=== PATIENT | male | born 1990 | race Caucasian/White ===

== ENCOUNTER 2019-10-31 20:48 | Emergency (ER) | payer MEDICAID ==
[~2019-10-31] VITALS: Ht 177.8 cm; Wt 90.9 kg
[2019-10-31 21:05] VITALS: BP 128/64
[2019-10-31] MEDS ORDERED: tetanus & diphtheria toxoid (Td) vaccine 0.5ml IMVAC ONE (21:30)
[2019-10-31] MEDS ORDERED: TETanus/Pertussis (Acell)/Diphther VAC/PF (Tdap-Adult) 0.5ml syringe IMVAC ONE (21:35)
[2019-10-31] MEDS ORDERED: HYDROcodone/acetaminophen 5mg/325mg tablet PO ONE (21:55)
[2019-10-31] MEDS ORDERED: LIDOcaine 1% W/epiNEPHrine 1:200,000 10ml vial IJ ONE (21:55)
[2019-10-31] MEDS ORDERED: IBUP-1984 PO (23:21)
[2019-10-31] MEDS ORDERED: CEPH-572 PO (23:21)
[2019-10-31] MEDS ORDERED: cephalexin 250mg capsule PO ONE (23:25)
--- NOTE | 2019-10-31 23:37 | NUR ---
Pt moved from fast track to main er. Laceration irrigated with another 400 cc's normal saline with zeroette. FATOU Gupta at [facility] now to suture. She reprots he is to f/t with dr. Ferguson this week and that they are expecting him to call. Pt reports his pain is currently managed, but that he is concerned about pain tomorrow. PA reports pt to use OTC for pain management.
== END 2019-11-01 00:25 | disposition home or self-care (01) ==
LOC: ER 20:49
DX: S62.631A Displaced fracture of distal phalanx of left index finger, initial encounter for closed fracture (principal); S61.211A Laceration without foreign body of left index finger without damage to nail, initial encounter; Z72.89 Other problems related to lifestyle; Z79.899 Other long term (current) drug therapy; W22.8XXA Striking against or struck by other objects, initial encounter; Y93.89 Activity, other specified; Y92.89 Other specified places as the place of occurrence of the external cause; Y99.8 Other external cause status
CPT/HCPCS: 12002; 73140; 90471; 90715; 99283

== ENCOUNTER 2019-11-02 12:36 | Emergency (ER) | payer MEDICAID ==
[~2019-11-02] VITALS: Ht 175.3 cm; Wt 90.0 kg
[~2019-11-02 12:36] MED LIST: CEPH-572 PO; IBUP-1984 PO
[2019-11-02 12:40] VITALS: BP 124/60
--- NOTE | 2019-11-02 13:21 | NUR ---
pt is 29 yo male would like follow for lac to left 2nd digit, was seen on Thursday, cut finger with log splitter, dressing is dry and intact, removed by vascular technician, sutures are intact, healing well, no redness, decreased ROM to finger, trying to follow up with Dr Welch
== END 2019-11-02 13:52 | disposition home or self-care (01) ==
LOC: ER 12:37
DX: S61.211D Laceration without foreign body of left index finger without damage to nail, subsequent encounter (principal); Z72.89 Other problems related to lifestyle; Z79.899 Other long term (current) drug therapy; W22.8XXD Striking against or struck by other objects, subsequent encounter
CPT/HCPCS: 29130; 99283